=== PATIENT | male | born 1965 | race Caucasian/White ===

== ENCOUNTER → 2020-04-22 | Day surgery (SDC) | payer OTHER ==
[~2020-04-22] MED LIST: ASPIRIN325 PO; COLACE100 MG PO; ELIQUIS2.5 MG PO; METAMUCIL PACK3.4 GM PO; MILK OF MA2400 MG/10 PO; NOHOMEMEDICATIONS; OXYCODONE HCL 55 MG PO; TRAMADOL 50 MG50 MG PO; TYLENOL325 MG PO
--- NOTE | 2020-05-04 07:44 | OP ---
[address] [id number] OPERATIVE REPORT Name: MICHAELANIBAL Savage Room: [facility]#: [id number] Admission: 04/22/20 Attend Phys: Brian Alcaraz DO Discharge: Date of : 63 Report #: [id number] THIS REPORT FOR: //name// cc: Pedro Stewart Bradley L. DO ~ CC: Brian Greene DO DICTATED BY: Balaji Andrade DO DATE OF SERVICE: 04/22/2020 Balaji Andrade DO, dictating on behalf of Brian Alcaraz DO PRIMARY CARE PHYSICIAN: Pedro Stewart DO PREOPERATIVE DIAGNOSIS: Right inguinal hernia. POSTOPERATIVE DIAGNOSIS: Right indirect inguinal hernia. PROCEDURE PERFORMED: Da Anand-assisted laparoscopic right inguinal hernia repair with ProGrip mesh. ANESTHESIA: General and local. FINDINGS: Indirect inguinal hernia on the right side. No left inguinal hernia. ESTIMATED BLOOD LOSS: 10 mL. SPECIMEN: None. COMPLICATIONS: None. HISTORY OF PRESENT ILLNESS: The patient is a 55-year-old male, who presented to the office with complaints of a right-sided bulge in his groin. He did have occasional discomfort with activity. He also felt as though he felt something on the left side as well. On exam, he did have a reducible right inguinal hernia and no palpable left inguinal hernia. We elected to proceed with the da Anand-assisted laparoscopic inguinal hernia repair, possible bilateral inguinal hernia repair. Risks, benefits, and alternatives were discussed at length and he agreed to proceed with the surgery. DESCRIPTION OF PROCEDURE: After consent was obtained, the patient was taken to the operating room and placed in a supine position. [place] [id number] OPERATIVE REPORT Name: ANIBAL RODRIGUEZ Room: [facility]#: [id number] Admission: 04/22/20 Attend Phys: Brian Alcaraz, DO Discharge: Date of : 63 Report #: [id number] lower extremities, safety belt placed across the patient's waist. The patient received 2 grams Ancef for a surgical prophylaxis. General endotracheal anesthesia was administered without any complication. The patient was prepped and draped in the standard sterile fashion. A timeout was performed confirming the patient and procedure. An 11 blade scalpel was used to make a vertical incision just above the umbilicus. Electrocautery was used for hemostasis and to dissect down to the level of the fascia. Once the fascia was encountered, it was scored with electrocautery, grasped between 2 Kochers and 2 stitches of 0 Vicryl placed on either side of the fascia. Hemostat was used to bluntly enter the peritoneum. An 8-mm robotic trocar was placed into the abdomen. Insufflation was initiated without any complication. Camera was inserted in the abdomen. Intraabdominal contents were inspected. The patient was placed in Trendelenburg and the groins were carefully inspected. There was a fairly large right indirect inguinal hernia containing a portion of small intestines. This was manually reduced externally. We then looked to the left side of the groin and there was no hernia in this region. We then placed 2 more 8-mm trocars under left and right subcostal regions under direct visualization. At this point, the [employer] da Anand robot was docked on the patient's left side and Dr. Alcaraz proceeded to go to the robotic console. At this point, the peritoneum was scored from the median umbilical ligament all the way to the ASIS. A peritoneal flap was created and subcutaneous tissue was carefully dissected away from the peritoneum. At this point, the hernia contents were reduced back into the abdomen and careful dissection around the spermatic cord was carried out to fully reduce our hernia defect. Once the peritoneal flap was reduced away from the preperitoneal space, the spermatic cord was carefully freed from all herniated intraperitoneal fat. Once we had created a substantial pocket for mesh placement, we then placed a ProGrip mesh through a right 8-mm trocar site. The ProGrip mesh was carefully placed medially and at least 3 cm below the pubic ramus and also covered all the femoral indirect and direct spaces. Once the mesh was adequately in place, we used a 2-0 V-Loc suture to close the overlying peritoneum. At this point, the hernia defect was completely repaired. We then reduced insufflation and removed all trocars under direct visualization. The supraumbilical trocar fascia was closed with 1 stitch of 0 Vicryl in a [id number] fashion and subcutaneous tissue reapproximated with 3-0 Vicryl and all skin incisions were reapproximated with 4-0 Monocryl in a subcuticular fashion. All needle, instrument, and sponge counts were correct x 2 at the end of the case. A sterile skin glue was then applied to all incisions. The patient was awoken from general anesthesia and transferred to PACU in stable condition. <ELECTRONICALLY SIGNED> By: Brian Alcaraz DO 05/04/20 [id number] Alcaraz, DO /nt
== END | disposition home or self-care (01) ==
LOC: M.SUR 09:15
PROVIDERS: ATTEND Surgery
DX: K40.90 Unilateral inguinal hernia, without obstruction or gangrene, not specified as recurrent (principal); Z90.49 Acquired absence of other specified parts of digestive tract; Z79.899 Other long term (current) drug therapy; Z98.890 Other specified postprocedural states; Z20.828 Contact with and (suspected) exposure to other viral communicable diseases